=== PATIENT | female | born 1995 | race African-American/Black ===

== ENCOUNTER 2017-10-04 00:11 | Emergency (ER) | payer MEDICAID ==
[~2017-10-04] VITALS: Ht 157.5 cm; Wt 75.0 kg
[~2017-10-04 00:11] MED LIST: FERR324T4 PO; HYDR200T3 PO; IBUP600T26 PO; LORTA5 PO; PRED10 PO; ZOFR4TAB3 SL
[2017-10-04 00:14] VITALS: BP 174/104; PULSE 79; RESP 12; TEMP 99.2; O2SAT 99
[2017-10-04] MEDS ORDERED: methylPREDNISolone SOD SUCC 125 MG/2 ML VIAL IV PUSH ONE (01:45)
[2017-10-04 01:56] VITALS: BP 184/111; PULSE 70; RESP 18; O2SAT 100
[2017-10-04 02:06] LABS: AUTOMATED NEUTROPHIL # 7.5 TH/MM3 (1.8-7.7); BASOPHIL % 0.4 % (0.0-2.0); EOSINOPHIL # 0.1 TH/MM3 (0-0.4); EOSINOPHIL % 0.9 % (0.0-4.0); HEMATOCRIT 27.2 % (35.0-46.0); HEMOGLOBIN 9.2 GM/DL (11.6-15.3); LYMPH % 5.2 % (9.0-44.0); LYMPHOCYTE # 0.4 TH/MM3 (1.0-4.8); MEAN CORPUSCULAR HEMOGLOBIN 29.1 PG (27.0-34.0); MEAN CORPUSCULAR HGB CONC 33.9 % (32.0-36.0); MEAN PLATELET VOLUME 9.1 FL (7.0-11.0); MONO % 4.9 % (0.0-8.0); MONOCYTE # 0.4 TH/MM3 (0-0.9); NEUT % 88.6 % (16.0-70.0); PLATELET COUNT 223 TH/MM3 (150-450); RED BLOOD COUNT 3.17 MIL/MM3 (4.00-5.30); RED CELL DISTRIBUTION WIDTH 13.1 % (11.6-17.2); WHITE BLOOD COUNT 8.5 TH/MM3 (4.0-11.0)
[2017-10-04] MEDS ORDERED: hydrALAZINE HCL 20 MG/ML VIAL IV PUSH ONE ×2 (02:30→03:00)
[2017-10-04 02:35] LABS: ALBUMIN 2.2 GM/DL (3.4-5.0); ALT (GPT) 12 U/L (10-53); AST (GOT) 9 U/L (15-37); BICARBONATE 23.4 MEQ/L (21.0-32.0); BLOOD UREA NITROGEN 16 MG/DL (7-18); CHLORIDE 105 MEQ/L (98-107); CREATININE 1.08 MG/DL (0.50-1.00); GLOMERULAR FILTRATION RATE 75 ML/MIN (>89); GLUCOSE,RANDOM 86 MG/DL (74-106); SODIUM (NA) 136 MEQ/L (136-145)
[2017-10-04 02:37] LABS: ALKALINE PHOSPHATASE 39 U/L (45-117); TOTAL BILIRUBIN ADULT 0.2 MG/DL (0.2-1.0); TOTAL PROTEIN 6.4 GM/DL (6.4-8.2)
[2017-10-04 02:48] LABS: AMORPHOUS SEDIMENT, URINE RARE; BACTERIA, URINE FEW /hpf; BILIRUBIN, URINE NEG (NEG); BLOOD, URINE MOD (NEG); GLUCOSE,URINE NEG (NEG); HYALINE CAST, URINE 18 /lpf (RARE); KETONE, URINE NEG (NEG); MUCUS URINE FEW /lpf (OCC); NITRITE,URINE POS (NEG); PH, URINE 7.5 (5.0-8.5); SQUAMOUS EPITHELIAL CELL URINE 6 /hpf (0-5); URINE COLOR YELLOW (YELLW/STRAW); URINE LEUKOCYTE ESTERASE MOD (NEG)
[2017-10-04] MEDS ORDERED: ONDANSETRON HCL 4 MG/2 ML VIAL IV PUSH ONE (03:00)
[2017-10-04 03:12] VITALS: BP 158/97; PULSE 80; RESP 17; O2SAT 99
[2017-10-04 03:23] VITALS: BP 87/45; PULSE 82; RESP 18; O2SAT 98
[2017-10-04] MEDS ORDERED: NITROFURANTOIN MONOHYD MACROCR 100 MG CAP PO ONE (03:45)
[2017-10-04 04:02] VITALS: BP 143/75; PULSE 97; RESP 18; O2SAT 99
[2017-10-04 05:01] VITALS: BP 133/77; PULSE 97; RESP 18; O2SAT 100
[2017-10-04] MEDS ORDERED: MACR100C2 PO (05:27)
--- NOTE | 2017-10-04 05:28 | PD ---
HPI . GI complaint Chief Complaint: GI Complaint Time Seen by Provider: 01:23 Travel History International Travel<30 days: No Contact w/Intl Traveler<30days: No Traveled to known affect area: No History of Present Illness HPI 22-year-old female who is 9 weeks , history of lupus that presented since patient's last 4 years ago, notes swelling in her face and generalized bodyaches consistent with possible lupus flare. Patient denies any fevers chills sweats, dysuria urgency frequency. Patient denies any vaginal bleeding or discharge. Also denies chest pain or shortness of breath. PFSH Past Medical History Narrative Medical Past medical history reviewed Hx Anticoagulant Therapy: No Anemia: Yes (HX TRANSFUSIONS) Blood Disorders: No Cancer: No Cardiovascular Problems: No Chemotherapy: No Cerebrovascular Accident: No Diabetes: No Diminished Hearing: No Endocrine: No Gastrointestinal Disorders: No Genitourinary: No Immune Disorder: Yes (Lupus ) Implanted Vascular Access Dvce: No Musculoskeletal: No Neurologic: No Psychiatric: No Reproductive: Yes (CHLAMYDIA) Respiratory: No Immunizations Current: Yes Tetanus Vaccination: Unknown Influenza Vaccination: Yes ?: : 1 Para: 1 Past Surgical History Hysterectomy: No Other Surgery: No Social History Alcohol Use: No Tobacco Use: No Substance Use: No Allergies-Medications (Allergen,Severity, Reaction): Coded Allergies: ceftriaxone (Unverified Adverse Reaction, Severe, Nausea/Vomiting, 10/04/17 ) latex (Unverified Adverse Reaction, Severe, Rash, 10/04/17) Reported Meds & Prescriptions Reported Meds & Active Scripts Active Zofran ODT (Ondansetron HCl) 4 Mg Tab 4 Mg SL Q6HR FOR NAUSEA/VOMITING Ibuprofen 600 Mg Tab 600 Mg PO TID 5 Days [place] 5-325 mg (Hydrocodone-Acetaminophen 5-325 mg) 1 Tab 1 Tab PO Q6H PRN Ferrous Sulfate 325 Mg Tab 325 Mg PO BID@12,18 Reported Deltasone 10 Mg Tab (Prednisone) 10 Mg Tab 40 Mg PO DAILY Hydroxychloroquine Sulfat (Hydroxychloroquine Sulfate) 200 Mg Tab 200 Mg PO Q12 Narrative Medication Allergies and medications reviewed Review of Systems Except as stated in HPI: all other systems reviewed are Neg General / Constitutional: No: Fever Eyes: No: Visual changes HENT: No: Headaches Cardiovascular: No: Chest Pain or Discomfort Respiratory: No: Shortness of Breath Gastrointestinal: No: Abdominal Pain Genitourinary: No: Dysuria Musculoskeletal: Positive: Myalgias, Arthralgias, Edema, No: Limited ROM, Pain Skin: No Rash Neurologic: No: Weakness Psychiatric: No: Depression Endocrine: No: Polydipsia Hematologic/Lymphatic: No: Easy Bruising Physical Exam Narrative GENERAL: Awake alert oriented 3 no acute distress. Blood pressure elevated 180 /110. Afebrile SKIN: Warm and dry. Color is normal diaphoresis cyanosis or pallor HEAD: Atraumatic. Normocephalic. EYES: Pupils equal and round. No scleral icterus. No injection or drainage. ENT: No nasal bleeding or discharge. Mucous membranes pink and moist. NECK: Trachea midline. No JVD. Supple full range of motion no carotid bruits CARDIOVASCULAR: Regular rate and rhythm. S1-S2 no murmurs or gallops RESPIRATORY: No accessory muscle use. Clear to auscultation. Breath sounds equal bilaterally. GASTROINTESTINAL: Abdomen soft, non-tender, nondistended. Hepatic and splenic margins not palpable. MUSCULOSKELETAL: Extremities without clubbing, cyanosis, or edema. No obvious deformities. NEUROLOGICAL: Awake and alert. No obvious cranial nerve deficits. Motor grossly within normal limits. Five out of 5 muscle strength in the arms and legs. Normal speech. PSYCHIATRIC: Appropriate mood and affect; insight and judgment normal. Data Data Last Documented VS Vital Signs Date Time Temp Pulse Resp B/P (MAP) Pulse Ox O2 Delivery O2 Flow Rate FiO2 10/04/17 05:01 18 10/04/17 05:01 97 133/77 (95) 100 Room Air 10/04/17 03:23 2.00 10/04/17 00:14 99.2 Orders Orders Iv Access Insert/Monitor (10/04/17 01:41) Complete Blood Count With Diff (10/04/17 01:41) Comprehensive Metabolic Panel (10/04/17 01:41) Urinalysis - C+S If Indicated (10/04/17 01:41) Methylprednisolone So Succ Inj (Solumedr (10/04/17 01:45) Hydralazine Inj (Apresoline Inj) (10/04/17 02:30) Westergren Sedimentation Rate (10/04/17 02:25) Urine Culture (10/04/17 02:30) Hydralazine Inj (Apresoline Inj) (10/04/17 03:00) Ondansetron Inj (Zofran Inj) (10/04/17 03:00) Nitrofurantoin Monohyd Macrocr (Macrobid (10/04/17 03:45) Labs Laboratory Tests Test 10/04/17 01:52 10/04/17 02:30 White Blood Count 8.5 TH/MM3 Red Blood Count 3.17 MIL/MM3 Hemoglobin 9.2 GM/DL Hematocrit 27.2 % Mean Corpuscular Volume 86.0 FL Mean Corpuscular Hemoglobin 29.1 PG Mean Corpuscular Hemoglobin Concent 33.9 % Red Cell Distribution Width 13.1 % Platelet Count 223 TH/MM3 Mean Platelet Volume 9.1 FL Neutrophils (%) (Auto) 88.6 % Lymphocytes (%) (Auto) 5.2 % Monocytes (%) (Auto) 4.9 % Eosinophils (%) (Auto) 0.9 % Basophils (%) (Auto) 0.4 % Neutrophils # (Auto) 7.5 TH/MM3 Lymphocytes # (Auto) 0.4 TH/MM3 Monocytes # (Auto) 0.4 TH/MM3 Eosinophils # (Auto) 0.1 TH/MM3 Basophils # (Auto) 0.0 TH/MM3 CBC Comment DIFF FINAL Differential Comment Erythrocyte Sedimentation Rate GREATER THAN 140 mm/hr Blood Urea Nitrogen 16 MG/DL Creatinine 1.08 MG/DL Random Glucose 86 MG/DL Total Protein 6.4 GM/DL Albumin 2.2 GM/DL Calcium Level 8.0 MG/DL Alkaline Phosphatase 39 U/L Aspartate Amino Transf (AST/SGOT) 9 U/L Alanine Aminotransferase (ALT/SGPT) 12 U/L Total Bilirubin 0.2 MG/DL Sodium Level 136 MEQ/L Potassium Level 4.0 MEQ/L Chloride Level 105 MEQ/L Carbon Dioxide Level 23.4 MEQ/L Anion Gap 8 MEQ/L Estimat Glomerular Filtration Rate 75 ML/MIN Urine Color YELLOW Urine Turbidity HAZY Urine pH 7.5 Urine Specific [place] 1.015 Urine Protein 300 mg/dL Urine Glucose (UA) NEG mg/dL Urine Ketones NEG mg/dL Urine Occult Blood MOD Urine Nitrite POS Urine Bilirubin NEG Urine Urobilinogen LESS THAN 2.0 MG/DL Urine Leukocyte Esterase MOD Urine RBC 106 /hpf Urine WBC 92 /hpf Urine Squamous Epithelial Cells 6 /hpf Urine Amorphous Sediment RARE Urine Bacteria FEW /hpf Urine Hyaline Casts 18 /lpf Urine Mucus FEW /lpf Microscopic Urinalysis Comment CULTURE INDICATED MDM Medical Decision Making Medical Screen Exam Complete: Yes Emergency Medical Condition: Yes Medical Record Reviewed: Yes Differential Diagnosis Hypertension , lupus flare, preeclampsia Narrative Course Patient's laboratory examinations reviewed, patient has normal liver function tests, patient has a mary UTI, difficult to assess for protein urine which is 300. Patient was given hydralazine 10 mg IV push 2 with eventual normalization of blood pressure. Patient has no history of hypertension. Care plan developed, patient is to present to her doctor's office today to get repeat blood pressure and again Saturday. Patient is also to return promptly for worsening. Patient has a supple splint allergy, we will treat patient's urinary tract infection with Macrobid. Again follow-up with her doctor ascertain efficacy of treatment. Diagnosis Primary Impression: Lupus (systemic lupus erythematosus) Qualified Codes: M32.9 - Systemic lupus erythematosus, unspecified Additional Impression: Hypertension affecting in first trimester Patient Instructions: General Instructions, Hypertension During (ED) , Lupus Erythematosus (DC) Additional Instructions: Follow-up with your doctor today and Saturday for repeat blood pressure measurements. Macrobid 100 mg twice daily for 10 days. Return promptly for worsening Scripts Nitrofurantoin Monohydrate Macrocrystals (Macrobid) 100 Mg Cap 100 MG PO BID for Infection, #20 CAP 0 Refills Prov: Ronan Herman MD 10/04/17 Disposition: DISCHARGE HOME Condition: Stable Ronan Herman MD Oct 04, 2017 05:27
== END 2017-10-04 05:43 | disposition home or self-care (01) ==
LOC: NEPE 00:11
DX: M32.9 Systemic lupus erythematosus, unspecified (principal); O16.1 Unspecified maternal hypertension, first trimester; O99.011 Anemia complicating pregnancy, first trimester; Z3A.09 9 weeks gestation of pregnancy; Z88.8 Allergy status to other drugs, medicaments and biological substances; Z79.899 Other long term (current) drug therapy
CPT/HCPCS: 80053; 81001; 85025; 85652; 87086; 96374; 96375; 96376; 99284; J0360; J2405; J2930

== ENCOUNTER 2017-10-24 09:53 | Emergency (ER) | payer MEDICAID ==
[~2017-10-24] VITALS: Ht 157.5 cm; Wt 54.0 kg
[~2017-10-24 09:53] MED LIST changes: +MACR100C2 PO
[2017-10-24 09:59] VITALS: BP 176/111; PULSE 76; RESP 17; TEMP 98.5; O2SAT 100
[2017-10-24 10:32] LABS: AUTOMATED NEUTROPHIL # 5.7 TH/MM3 (1.8-7.7); BASOPHIL % 0.7 % (0.0-2.0); EOSINOPHIL # 0.1 TH/MM3 (0-0.4); HEMATOCRIT 25.1 % (35.0-46.0); HEMOGLOBIN 8.6 GM/DL (11.6-15.3); LYMPH % 8.1 % (9.0-44.0); LYMPHOCYTE # 0.6 TH/MM3 (1.0-4.8); MEAN CELL VOLUME 86.5 FL (80.0-100.0); MEAN CORPUSCULAR HEMOGLOBIN 29.7 PG (27.0-34.0); MEAN CORPUSCULAR HGB CONC 34.3 % (32.0-36.0); MEAN PLATELET VOLUME 8.2 FL (7.0-11.0); MONO % 4.9 % (0.0-8.0); MONOCYTE # 0.3 TH/MM3 (0-0.9); NEUT % 84.3 % (16.0-70.0); PLATELET COUNT 257 TH/MM3 (150-450); RED CELL DISTRIBUTION WIDTH 13.1 % (11.6-17.2); WHITE BLOOD COUNT 6.8 TH/MM3 (4.0-11.0)
[2017-10-24 10:46] LABS: BACTERIA, URINE OCC /hpf; BILIRUBIN, URINE NEG (NEG); BLOOD, URINE MOD (NEG); GLUCOSE,URINE NEG (NEG); HYALINE CAST, URINE 9 /lpf (RARE); KETONE, URINE NEG (NEG); NITRITE,URINE NEG (NEG); SQUAMOUS EPITHELIAL CELL URINE 5 /hpf (0-5); URINE COLOR YELLOW (YELLW/STRAW); URINE LEUKOCYTE ESTERASE LARGE (NEG); WHITE BLOOD CELL CLUMPS MANY
--- NOTE | 2017-10-24 10:52 | PD ---
HPI Chief Complaint: Related Problem Time Seen by Provider: 10:51 Travel History International Travel<30 days: No Contact w/Intl Traveler<30days: No Traveled to known affect area: No History of Present Illness HPI 22-year-old female patient with lupus, presents to the ER today, 13 weeks , was seen by Dr. Hoffmann 2 days ago and had a first evaluation for this , ultrasound shows IUP, presents to the ER today because she is having blood when she urinates. She states that the urine appears dark. She thinks she may be bleeding. She also has had some intermittent abdominal cramping. She has had some headaches, but denies any recent fevers. She also has been diagnosed with hypertension and is currently on labetalol. Modifying Factors: None Associated Signs & Symptoms: , vaginal bleeding, abdominal cramping Risk Factors: Lupus PFSH Past Medical History Hx Anticoagulant Therapy: No Anemia: Yes (HX TRANSFUSIONS) Blood Disorders: No Cancer: No Cardiovascular Problems: No Chemotherapy: No Cerebrovascular Accident: No Diabetes: No Diminished Hearing: No Endocrine: No Gastrointestinal Disorders: No Genitourinary: No Immune Disorder: Yes (Lupus ) Implanted Vascular Access Dvce: No Musculoskeletal: No Neurologic: No Psychiatric: No Reproductive: Yes (CHLAMYDIA) Respiratory: No Immunizations Current: Yes ?: : 2 Para: 1 Miscarriage: 0 : 0 Past Surgical History Hysterectomy: No Other Surgery: No Social History Alcohol Use: No Tobacco Use: No Substance Use: No Allergies-Medications (Allergen,Severity, Reaction): Coded Allergies: ceftriaxone (Unverified Adverse Reaction, Severe, Nausea/Vomiting, 10/04/17 ) latex (Unverified Adverse Reaction, Severe, Rash, 10/04/17) Reported Meds & Prescriptions Reported Meds & Active Scripts Active Amoxicillin 500 Mg Tab 500 Mg PO TID 7 Days Macrobid (Nitrofurantoin Monoh/Nitrofur Macro) 100 Mg Cap 100 Mg PO BID Zofran ODT (Ondansetron HCl) 4 Mg Tab 4 Mg SL Q6HR FOR NAUSEA/VOMITING Ibuprofen 600 Mg Tab 600 Mg PO TID 5 Days [place] 5-325 mg (Hydrocodone-Acetaminophen 5-325 mg) 1 Tab 1 Tab PO Q6H PRN Ferrous Sulfate 325 Mg Tab 325 Mg PO BID@18 Reported Deltasone 10 Mg Tab (Prednisone) 10 Mg Tab 40 Mg PO DAILY Hydroxychloroquine Sulfat (Hydroxychloroquine Sulfate) 200 Mg Tab 200 Mg PO Q12 Review of Systems Except as stated in HPI: all other systems reviewed are Neg Physical Exam Narrative GENERAL: Well-developed young -[place] female patient currently in mild distress. Awake and oriented 3. SKIN: Focused skin assessment warm/dry. HEAD: Atraumatic. Normocephalic. EYES: Pupils equal and round. No scleral icterus. No injection or drainage. ENT: No nasal bleeding or discharge. Mucous membranes pink and moist. NECK: Trachea midline. No JVD. CARDIOVASCULAR: Regular rate and rhythm. No murmur appreciated. RESPIRATORY: No accessory muscle use. Clear to auscultation. Breath sounds equal bilaterally. GASTROINTESTINAL: Abdomen soft, non-tender, nondistended. Hepatic and splenic margins not palpable. GENITOURINARY: Normal external genitalia without lesions or erythema. Vaginal vault without blood or drainage. Cervical os was closed without drainage. No cervical motion tenderness. Uterus nontender and appropriately enlarged. Bilateral adnexa nontender without masses MUSCULOSKELETAL: No obvious deformities. No clubbing. No cyanosis. No edema. NEUROLOGICAL: Awake and alert. No obvious cranial nerve deficits. Motor grossly within normal limits. Normal speech. PSYCHIATRIC: Appropriate mood and affect; insight and judgment normal. Data Data Last Documented VS Vital Signs Date Time Temp Pulse Resp B/P (MAP) Pulse Ox O2 Delivery O2 Flow Rate FiO2 10/24/17 09:59 98.5 76 17 176/111 (132) 100 Orders Orders Complete Blood Count With Diff (10/24/17 10:09) Basic Metabolic Panel (Bmp) (10/24/17 10:09) Complete Rh (10/24/17 10:09) Urinalysis - C+S If Indicated (10/24/17 10:09) Heart Tones (10/24/17 10:09) Urine Culture (10/24/17 10:12) Hepatic Functional Panel (10/24/17 10:52) Labs Laboratory Tests Test 10/24/17 10:00 10/24/17 10:12 White Blood Count 6.8 TH/MM3 Red Blood Count 2.90 MIL/MM3 Hemoglobin 8.6 GM/DL Hematocrit 25.1 % Mean Corpuscular Volume 86.5 FL Mean Corpuscular Hemoglobin 29.7 PG Mean Corpuscular Hemoglobin Concent 34.3 % Red Cell Distribution Width 13.1 % Platelet Count 257 TH/MM3 Mean Platelet Volume 8.2 FL Neutrophils (%) (Auto) 84.3 % Lymphocytes (%) (Auto) 8.1 % Monocytes (%) (Auto) 4.9 % Eosinophils (%) (Auto) 2.0 % Basophils (%) (Auto) 0.7 % Neutrophils # (Auto) 5.7 TH/MM3 Lymphocytes # (Auto) 0.6 TH/MM3 Monocytes # (Auto) 0.3 TH/MM3 Eosinophils # (Auto) 0.1 TH/MM3 Basophils # (Auto) 0.0 TH/MM3 CBC Comment DIFF FINAL Differential Comment Blood Urea Nitrogen 23 MG/DL Creatinine 1.39 MG/DL Random Glucose 64 MG/DL Calcium Level 8.5 MG/DL Sodium Level 136 MEQ/L Potassium Level 4.7 MEQ/L Chloride Level 107 MEQ/L Carbon Dioxide Level 21.1 MEQ/L Anion Gap 8 MEQ/L Estimat Glomerular Filtration Rate 56 ML/MIN Total Bilirubin 0.1 MG/DL Direct Bilirubin LESS THAN 0.1 MG/DL Indirect Bilirubin 0.0 MG/DL Aspartate Amino Transf (AST/SGOT) 12 U/L Alanine Aminotransferase (ALT/SGPT) 13 U/L Alkaline Phosphatase 53 U/L Total Protein 7.2 GM/DL Albumin 2.2 GM/DL Urine Color YELLOW Urine Turbidity HAZY Urine pH 7.0 Urine Specific [place] 1.014 Urine Protein 300 mg/dL Urine Glucose (UA) NEG mg/dL Urine Ketones NEG mg/dL Urine Occult Blood MOD Urine Nitrite NEG Urine Bilirubin NEG Urine Urobilinogen LESS THAN 2.0 MG/DL Urine Leukocyte Esterase LARGE Urine RBC /hpf Urine WBC 166 /hpf Urine WBC Clumps MANY Urine Squamous Epithelial Cells 5 /hpf Urine Bacteria OCC /hpf Urine Hyaline Casts 9 /lpf Microscopic Urinalysis Comment CULTURE INDICATED MDM Medical Decision Making Medical Screen Exam Complete: Yes Emergency Medical Condition: Yes Medical Record Reviewed: Yes Differential Diagnosis , blood when she wipes, dark urine: UTI versus threatened AB versus dehydration versus liver enzyme abnormalities Narrative Course Pelvic exam did not show any signs of bleeding. Cervix is closed. Transabdominal ultrasound done by me shows IUP with good movement and heart rate of 150. Her lab work does show a UTI which I plan to treat. My plan would be to release her with follow-up to her [employer]. Return for any worsening of symptoms as needed. The plan has been discussed with her and she states understanding. Procedures Procedure Narrative Transabdominal ultrasound done by me in the ER shows IUP with good heart tones of 150 bpm, good movements. Diagnosis Primary Impression: UTI (urinary tract infection) in in second trimester Med/Other Pt SpecificInfo: Prescription(s) given Scripts Amoxicillin (Amoxicillin) 500 Mg Tab 500 MG PO TID for Infection for 7 Days, TAB 0 Refills Prov: Ildefonso Perez MD 10/24/17 Disposition: DISCHARGE HOME Condition: Stable Ildefonso Perez MD Oct 24, 2017 10:52
[2017-10-24 10:56] LABS: BICARBONATE 21.1 MEQ/L (21.0-32.0); CALCIUM 8.5 MG/DL (8.5-10.1); CREATININE 1.39 MG/DL (0.50-1.00)
[2017-10-24] MEDS ORDERED: AMOX500T PO (11:07)
[2017-10-24 11:14] LABS: ALBUMIN 2.2 GM/DL (3.4-5.0); ALT (GPT) 13 U/L (10-53); AST (GOT) 12 U/L (15-37); DIRECT BILIRUBIN ADULT LESS THAN 0.1 MG/DL (0.0-0.2)
[2017-10-24 11:15] LABS: ALKALINE PHOSPHATASE 53 U/L (45-117); TOTAL BILIRUBIN ADULT 0.1 MG/DL (0.2-1.0); TOTAL PROTEIN 7.2 GM/DL (6.4-8.2)
[2017-10-24 11:19] VITALS: BP 189/118; PULSE 87; RESP 17; O2SAT 100
== END 2017-10-24 11:44 | disposition home or self-care (01) ==
LOC: NEPC 09:53
DX: O23.41 Unspecified infection of urinary tract in pregnancy, first trimester (principal); B96.89 Other specified bacterial agents as the cause of diseases classified elsewhere; M32.9 Systemic lupus erythematosus, unspecified; Z3A.13 13 weeks gestation of pregnancy
CPT/HCPCS: 80048; 80076; 81001; 85025; 86901; 87086